=== PATIENT | male | born 1960 | race American Indian/Alaskan Native ===

== ENCOUNTER 2020-03-23 21:25 | Emergency (ER) | payer MEDICAID ==
[2020-03-23] MEDS ORDERED: LORazepam 2 MG/ML VIAL IM ONE (21:41)
[2020-03-23] MEDS ORDERED: levETIRAcetam 500 MG in DEXTROSE 5% IN WATER 100 ML IV ONE (21:48)
--- NOTE | 2020-03-23 21:56 | Emergency Department Report ---
ED Seizure HPI - General Chief Complaint: Seizure Stated Complaint: SEIZURE Time Seen by Provider: 03/23/20 21:33 Source: EMS, RN notes reviewed Mode of arrival: Stretcher Limitations: Altered Mental Status, Other - History of Present Illness Initial Comments: 60-year-old male with history of traumatic brain injury, alcohol abuse, seizures, neuropathy, subdural hemorrhage who presents from [facility] for 3 seizures today. As per EMS NH reported each seizure lasted aprox 20 sec. Patient has been compliant with Keppra 1000 mg every 12 hours and had his evening dose today. As per medical record review patient is also on aspirin, Benadryl, Flomax, gabapentin, melatonin, and tramadol 50 mg every 8 hours for pain. As per medical record at his baseline patient is nonverbal and aggressive. He is currently nonverbal, moving all extremities, and physically aggressive when he tried to touch him or perform physical examination. - Related Data Home Medications Medication Instructions Recorded Confirmed Last Taken Acetaminophen [Tylenol] 655 mg PO Q6HR PRN 01/23/20 01/23/20 Unknown Colace CAP 100 mg PO Q12HR PRN 01/23/20 01/23/20 Unknown Gabapentin 300 mg PO QHS 01/23/20 01/23/20 Unknown Melatonin 3 mg PO QHS PRN 01/23/20 01/23/20 Unknown Tamsulosin 0.4 mg PO QHS 01/23/20 01/23/20 Unknown Tramadol HCl 50 mg PO Q8HR PRN 01/23/20 01/23/20 Unknown diphenhydrAMINE [Benadryl CAP] 25 mg PO Q6HR PRN 01/23/20 01/23/20 Unknown levETIRAcetam 1,000 mg PO Q12HR 01/23/20 01/23/20 Unknown Previous Rx's Medication Instructions Recorded Last Taken Type Doxycycline Hyclate [Doxycycline 100 mg PO Q12HR #14 tab 01/24/20 Unknown Rx Hyclate TAB] Allergies Allergy/AdvReac Type Severity Reaction Status Date / Time No Known Allergies Allergy Verified 02/01/20 11:02 ED Review of Systems ROS: Stated complaint: SEIZURE Other details as noted in HPI Comment: Unobtainable due to pts medical conditions ED Past Medical Hx - Past Medical History Previous Medical History?: Yes Hx Seizures: Yes Hx Psychiatric Treatment: Yes (ETOH abuse) Additional medical history: neuropathy. TBI. insomnia - Surgical History Additional Surgical History: unknown - Social History Smoking Status: Unknown if ever smoked - Medications Home Medications: Home Medications Medication Instructions Recorded Confirmed Last Taken Type Acetaminophen [Tylenol] 655 mg PO Q6HR PRN 01/23/20 01/23/20 Unknown History Colace CAP 100 mg PO Q12HR PRN 01/23/20 01/23/20 Unknown History Gabapentin 300 mg PO QHS 01/23/20 01/23/20 Unknown History Melatonin 3 mg PO QHS PRN 01/23/20 01/23/20 Unknown History Tamsulosin 0.4 mg PO QHS 01/23/20 01/23/20 Unknown History Tramadol HCl 50 mg PO Q8HR PRN 01/23/20 01/23/20 Unknown History diphenhydrAMINE [Benadryl CAP] 25 mg PO Q6HR PRN 01/23/20 01/23/20 Unknown History levETIRAcetam 1,000 mg PO Q12HR 01/23/20 01/23/20 Unknown History Doxycycline Hyclate [Doxycycline 100 mg PO Q12HR #14 tab 01/24/20 Unknown Rx Hyclate TAB] ED Physical Exam - General Limitations: Altered Mental Status, Other - Other Other exam information: General: No acute distress Head: Atraumatic Eyes: normal appearance ENT: Moist mucous membranes Neck: Normal appearance, no midline tenderness Chest: Clear to auscultation bilaterally CV: Tachycardic regular rhythm Abdomen: Soft, normal bowel sounds, healed PEG scar no current PEG tube, nontender, nondistended, no rebound or guarding Extremity: Normal inspection, full range of motion Neuro: Alert nonverbal, 5/5 upper lower extremity strength, Psych: Aggressive and physically combative when you attempt to examine or touch patient Skin: No rash ED Course Vital Signs 03/23/20 03/24/20 03/24/20 21:40 00:36 02:46 Temperature 99.6 F Pulse Rate 105 H 115 H 70 Respiratory 16 16 16 Rate Blood Pressure 126/65 121/66 112/70 [Right] O2 Sat by Pulse 99 96 99 Oximetry ED Medical Decision Making - Lab Data Result diagrams: 03/23/20 22:38 03/23/20 22:38 Lab Results 03/23/20 03/23/20 03/23/20 Range/Units 22:28 22:38 22:38 WBC 13.0 H (4.5-11.0) K/mm3 RBC 4.63 (3.65-5.03) M/mm3 Hgb 13.6 (11.8-15.2) gm/dl Hct 41.5 (35.5-45.6) % MCV 90 (84-94) fl MCH 29 (28-32) pg MCHC 33 (32-34) % RDW 13.9 (13.2-15.2) % Plt Count 159 (140-440) K/mm3 Lymph % (Auto) 6.6 L (13.4-35.0) % [place] % (Auto) 5.7 (0.0-7.3) % Eos % (Auto) 0.0 (0.0-4.3) % Baso % (Auto) 0.4 (0.0-1.8) % Lymph # (Auto) 0.9 L (1.2-5.4) K/mm3 [place] # (Auto) 0.7 (0.0-0.8) K/mm3 Eos # (Auto) 0.0 (0.0-0.4) K/mm3 Baso # (Auto) 0.0 (0.0-0.1) K/mm3 Seg Neutrophils % 87.3 H (40.0-70.0) % Seg Neutrophils # 11.4 H (1.8-7.7) K/mm3 Sodium 135 L (137-145) mmol/L Potassium 4.4 (3.6-5.0) mmol/L Chloride 101.2 (98-107) mmol/L Carbon Dioxide 21 L (22-30) mmol/L Anion Gap 17 mmol/L BUN 10 (9-20) mg/dL Creatinine 0.7 L (0.8-1.3) mg/dL Estimated GFR > 60 ml/min BUN/Creatinine Ratio 14 % Glucose 119 H (75-100) mg/dL POC Glucose 121 H (70-105) Calcium 9.4 (8.4-10.2) mg/dL Magnesium 2.00 (1.7-2.3) mg/dL - EKG Data -: EKG Interpreted by [facility] EKG shows normal: sinus rhythm, intervals (QTC 425), ST-T waves (no ischemic findings) Rate: tachycardia (113) - Radiology Data Radiology results: report reviewed CT head/brain wo con INDICATION: Multiple seizures. TECHNIQUE: Routine CT head without contrast. All CT scans at this location are performed using CT dose reduction for ALARA by means of automated exposure control. COMPARISON: Head CT on 01/22/2020 FINDINGS: BRAIN / INTRACRANIAL CONTENTS: No acute hemorrhage, mass effect, midline shift, or hydrocephalus. No appreciable acute large territorial or lacunar infarct. There is stable chronic encephalomalacia in both frontal lobes likely secondary to previous trauma with ex vacuo dilation of the frontal horns of the lateral ventricles. ORBITS: No significant abnormality of visualized orbits. SINUSES / MASTOIDS: Mild mucosal thickening in the sphenoid sinuses. ADDITIONAL FINDINGS: None. IMPRESSION: 1. No acute intracranial abnormality. No adverse change from the prior exam. - Medical Decision Making Patient treated in the ED with 2 mg of IM Ativan both to help with seizure prophylaxis as well as patient cooperation for IV, blood draw, and imaging studies. He did receive an additional load of 500 mg of Keppra since he had his evening dose of 1000 prior to arrival. ED work-up including CT head, CBC, BMP, and magnesium are without significant acute findings. Patient did have mild sinus tachycardia during ED stay which resolved with 1 L of normal saline. Patient observed for several hours without recurrent seizure activity. patient will be discharged back to snf. Will recommend that tramadol be discontinued since this can lower seizure threshold Critical Care Time: No Critical care attestation.: If time is entered above; I have spent that time in minutes in the direct care of this critically ill patient, excluding procedure time. ED Disposition Clinical Impression: Seizures Disposition: DC-01 TO HOME OR SELFCARE Is pt being admited?: No Does the pt Need Aspirin: No Condition: Stable Instructions: Recurrent Seizures Adult (ED) Additional Instructions: Continue Keppra as prescribed. I Recommend that patient discontinue the tramadol if this is currently being administered because tramadol may lower seizure threshold and increased risk for seizures. follow-up with your doctor or doctor/clinic provided. Return if symptoms worsen as indicated by your discharge instructions. Referrals: PRIMARY CARE, [Primary Care Provider] - 3-5 Days BERONICA PHILLIPS MD [Staff Physician] - 3-5 Days Time of Disposition: 04:02
[2020-03-23 22:52] LABS: Basophils % (Auto) 0.4 % (0.0-1.8); Hematocrit 41.5 % (35.5-45.6); Hemoglobin 13.6 gm/dl (11.8-15.2); Lymphocytes # (Auto) 0.9 K/mm3 (1.2-5.4); Lymphocytes % (Auto) 6.6 % (13.4-35.0); Mean Corpuscular HGB Conc 33 % (32-34); Mean Corpuscular Volume 90 fl (84-94); Monocytes # (Auto) 0.7 K/mm3 (0.0-0.8); Monocytes % (Auto) 5.7 % (0.0-7.3); Platelet Count 159 K/mm3 (140-440); Red Blood Count 4.63 M/mm3 (3.65-5.03); Red Cell Distribution Width 13.9 % (13.2-15.2)
[2020-03-23 23:08] LABS: Blood Urea Nitrogen 10 mg/dL (9-20); Calcium 9.4 mg/dL (8.4-10.2); Hemolysis Index 12
[2020-03-23 23:09] LABS: BUN/Creatinine Ratio 14
--- NOTE | 2020-03-24 00:24 | Cat Scan Report ---
CT head/brain wo con INDICATION: Multiple seizures. TECHNIQUE: Routine CT head without contrast. All CT scans at this location are performed using CT dos e reduction for ALARA by means of automated exposure control. COMPARISON: Head CT on 01/22/2020 FINDINGS: BRAIN / INTRACRANIAL CONTENTS: No acute hemorrhage, mass effect, midline shift, or hydrocephalus. No appreciable acute large territorial or lacunar infarct. There is stable chronic encephalomalacia in b oth frontal lobes likely secondary to previous trauma with ex vacuo dilation of the frontal horns of the lateral ventricles. ORBITS: No significant abnormality of visualized orbits. SINUSES / MASTOIDS: Mild mucosal thickening in the sphenoid sinuses. ADDITIONAL FINDINGS: None. IMPRESSION: 1. No acute intracranial abnormality. No adverse change from the prior exam. Signer Name: Perez Alas MD Signed: 03/24/2020 12:19 AM Workstation Name: [id number]
[2020-03-24] MEDS ORDERED: SODIUM CHLORIDE 0.9% 1000 ML 1,000 ML IV ONE (01:11)
[2020-03-24 02:47] VITALS: BP 112/70
== END 2020-03-24 05:59 | disposition home or self-care (01) ==
LOC: ED 21:25
DX: R56.9 Unspecified convulsions (principal); R00.0 Tachycardia, unspecified; Z79.899 Other long term (current) drug therapy
CPT/HCPCS: 36415; 70450; 80048; 82962; 83735; 85025; 93005; 96361; 96372; 96374; 99285; J1953; J2060